=== PATIENT | female | born 1960 | race Caucasian/White ===

== ENCOUNTER 2018-02-11 08:01 | Day surgery (SDC) | payer OTHER ==
[~2018-02-11 08:01] MED LIST: CEFAZOLIN 1 GM/50 ML (PMX) 50 ML IVPB; SOD CHLORIDE 0.9% 1,000 ML IV
[2018-02-11] MEDS ORDERED: PROPOFOL 20 ML (11:47)
[2018-02-11] MEDS ORDERED: MEPERIDINE /PF (100 MG/2 ML) AMPULE (11:47)
[2018-02-11] MEDS ORDERED: LIDOCAINE 2% (SDV) 5 ML INJ (11:47)
[2018-02-11] MEDS ORDERED: CEFAZOLIN 1 GM INJ (11:47)
[2018-02-11] MEDS ORDERED: METOCLOPRAMIDE 10 MG INJ (11:48)
[2018-02-11] MEDS ORDERED: ONDANSETRON 4 MG INJ (11:48)
[2018-02-11] MEDS ORDERED: MEPERIDINE 25 MG INJ IV (12:00)
[2018-02-11] MEDS ORDERED: LABETALOL HCL 20MG INJ IV (12:00)
[2018-02-11] MEDS ORDERED: hydrALAzine 20 MG INJ IV (12:00)
[2018-02-11] MEDS ORDERED: FENTAnyl 50 MCG/ML VIAL IV ×2 (12:00)
[2018-02-11] MEDS ORDERED: DIPHENHYDRAMINE 50 MG INJ IV (12:00)
[2018-02-11] MEDS ORDERED: HYDROmorphONE 1 MG/5 ML IV SYRINGE IV ×3 (12:00)
[2018-02-11] MEDS ORDERED: EPHEDrine SULFATE 50 MG/5 ML SYG IV (12:00)
[2018-02-11] MEDS ORDERED: METOCLOPRAMIDE 10 MG INJ IV (12:00)
[2018-02-11] MEDS ORDERED: ONDANSETRON 4 MG INJ IV (12:00)
[2018-02-11] MEDS ORDERED: MIDAZOLAM 1 MG/ML 2 ML INJ IV (12:00)
[2018-02-11] MEDS ORDERED: OXYCODONE/ACETAMINOPHEN (5/325) TAB PO (12:00)
[2018-02-11] MEDS ORDERED: HYDROCODONE/APAP (7.5/325) TAB PO ×2 (13:00)
[2018-02-11] MEDS: FENTAnyl 50 MCG/ML VIAL IV (13:22)
[2018-02-11] MEDS: OXYCODONE/ACETAMINOPHEN (5/325) TAB PO (14:13)
== END 2018-02-11 14:43 | disposition home or self-care (01) ==
LOC: SDS 08:01
DX: N60.91 Unspecified benign mammary dysplasia of right breast (principal); R92.0 Mammographic microcalcification found on diagnostic imaging of breast; L90.5 Scar conditions and fibrosis of skin
CPT/HCPCS: 19120; 88307